=== PATIENT | female | born 1985 | race Caucasian/White ===

== ENCOUNTER 2016-06-13 17:58 | Emergency (ER) | payer OTHER ==
[~2016-06-13] VITALS: Ht 157.5 cm; Wt 84.5 kg
[~2016-06-13 17:58] MED LIST: FLUC150T17 PO; [UNRECOGNIZED DRUG - CODE] VAG
[2016-06-13 18:00] VITALS: Ht 157.5 cm; Wt 84.5 kg
--- NOTE | 2016-06-13 19:31 | ERD ---
ER Documentation Chief Complaint Date/Time DATE: 06/13/16 TIME: 19:31 Chief Complaint VAG BLEED X 8 DAYS, 6 WEEKS HPI 31-year-old female who is A0 comes in with vaginal bleeding over the past 3 weeks. Patient states that she was told that she was after going to the clinic with routine blood work and urine tests. Patient states that her last menstrual period was on April 04, 2016, and May 17 she experienced heavy vaginal bleeding and since then she has had light spotting. She has had pelvic cramping as well. She denies fevers, chills or dizziness. ROS All systems reviewed and are negative except as per history of present illness. Medications Home Meds Active Scripts Miconazole Nitrate* (Miconazole-7*) 100 Mg/Supp.vag Supp.vag, 100 MG VAG HS, #7 SUPP.VAG Prov:DILLON BUCKLEY PA-C 08/29/15 Fluconazole* (Diflucan*) 150 Mg Tablet, 150 MG PO ONCE, #1 TAB Prov:DILLON BUCKLEY PA-C 08/29/15 Allergies Allergies: Coded Allergies: No Known Allergy (Unverified , 06/13/16) PMhx/Soc Medical and Surgical Hx: pt denies Medical Hx History of Surgery: Yes ( x 1) Anesthesia Reaction: No Hx Neurological Disorder: No Hx Respiratory Disorders: No Hx Cardiac Disorders: No Hx Psychiatric Problems: No Hx Miscellaneous Medical Probl: No Hx Alcohol Use: No Hx Substance Use: No Hx Tobacco Use: No Smoking Status: Never smoker Physical Exam Vitals Vital Signs Date Time Temp Pulse Resp B/P Pulse Ox O2 Delivery O2 Flow Rate FiO2 06/13/16 21:52 98.4 79 18 118/73 100 Room Air 06/13/16 18:00 97.9 98 18 125/79 99 Physical Exam General: Well-developed, well-nourished. The patient appears in no acute distress. HEENT: Head is normocephalic, atraumatic. No scleral icterus. Neck: Supple. Nontender. Lungs: Clear to auscultation. Normal air movement. Heart: Regular rate and rhythm. S1 and S2 are normal. No murmurs, gallops, or rubs. Abdomen: Soft, nontender, nondistended. Bowel sounds are normoactive. : ALT is closed, no CMT tenderness, mild vaginal bleeding. Extremities: No clubbing or cyanosis. Normal pulses. Moving extremities x 4. No weakness. Neurologic: Alert and oriented 3. No focal deficits. Skin: Normal turgor. No rash or lesions. Result Diagram: 06/13/161935 Results 24 hrs Laboratory Tests Test 06/13/16 19:36 Basophils # 0.110^3/ul Basophils % 0.7% Beta HCG, Quantitative 96055.0mIU/ml Eosinophils # 0.110^3/ul Eosinophils % 1.0% Hematocrit 37.4% Hemoglobin 13.0g/dl Lymphocytes # 2.010^3/ul Lymphocytes % 25.9% Mean Corpuscular Hemoglobin 31.9pg Mean Corpuscular Hemoglobin Concent 34.6g/dl Mean Corpuscular Volume 92.2fl Mean Platelet Volume 8.3fl Monocytes # 0.310^3/ul Monocytes % 4.1% Neutrophils # 5.410^3/ul Neutrophils % 68.3% Nucleated Red Blood Cells # 0.010^3/ul Nucleated Red Blood Cells % 0.0/100WBC Platelet Count 55609^3/UL Red Blood Count 4.0610^6/ul Red Cell Distribution Width 13.1% Urine Bacteria MODERATE Urine Bilirubin NEGATIVE Urine Clarity SLIGHTLY CLOUDY Urine Color LT. YELLOW Urine Glucose NEGATIVE% Urine Hemoglobin 3+ Urine Ketones NEGATIVE Urine Leukocyte Esterase NEGATIVE Urine Microscopic RBC 5-10/HPF Urine Microscopic WBC NONE SEEN/HPF Urine Nitrite NEGATIVE Urine Specific [place] <=1.005 Urine Squamous Epithelial Cells MANY Urine Total Protein NEGATIVE Urine Urobilinogen 0.2 E.U./dL Urine pH 6.5 White Blood Count 7.910^3/ul PROCEDURE: Ultrasound . CLINICAL INDICATION: with vaginal hemorrhage. TECHNIQUE: Transabdominal ultrasound. COMPARISON: None FINDINGS: Gestational sac is identified with estimated gestational age of 7 weeks and 6 days. Estimated date of delivery is 01/24/2017. Otherwise there is no identified pole or yolk sac. Large subchorionic hemorrhage measures 37 x 18 x 11 mm. Right ovary measures 29 x 21 x 21 mm. Left ovary measures 32 x 23 x 19 mm. IMPRESSION: 1. Gestational sac without identified pole or yolk sac. 2. Estimated gestational age is 7 weeks and 6 days. 3. Large subchorionic hemorrhage. 4. Recommend follow-up serial quantitative beta HCG and ultrasound examinations. RPTAT: UU. Lindsay Husain Physician Date Time Electronically viewed and signed by Lindsay Husain Physician on 06/13/2016 20:25 RS/ Procedures/MDM MDM: 31-year-old female comes in with likely a missed . Patient shows a gestational sac on ultrasound that measures to be 7 weeks and 6 days, no evidence of yolk sac or pole, no heart tones. HCG was at 49,000, I spoke with the OB ed educational aide Dr. Reynolds who agrees that this patient does not have any surgical process or high suspicion for ectopic . Patient was advised to follow-up outpatient for a D&C. Departure Diagnosis: Primary Impression: Threatened Condition: YASMIN Altman PA-C Jun 13, 2016 19:31
[2016-06-13 19:56] LABS: ADD UMIC YES; URINE BILIRUBIN (Dip) NEGATIVE (NEGATIVE); URINE BLOOD (Dip) 3+ (NEGATIVE); URINE COLOR LT. YELLOW (YELLOW); URINE GLUCOSE (Dip) NEGATIVE (NEGATIVE); URINE KETONES (Dip) NEGATIVE (NEGATIVE); URINE LEUKOCYTE ESTERASE (Dip) NEGATIVE (NEGATIVE); URINE NITRITE (Dip) NEGATIVE (NEGATIVE); URINE TOTAL PROTEIN (Dip) NEGATIVE (NEGATIVE); URINE UROBILINOGEN (Dip) 0.2 E.U./dL (0.1-1.0)
[2016-06-13 19:59] LABS: BASOPHIL # 0.1 10^3/ul (0.0-0.1); BASOPHILS % 0.7 % (0.0-2.0); EOSINOPHILS # 0.1 10^3/ul (0.0-0.5); HEMATOCRIT 37.4 % (37.0-47.0); LYMPHOCYTES % 25.9 % (15.0-51.0); MEAN CORPUSCULAR HEMOGLOBIN 31.9 pg (29.0-33.0); MEAN CORPUSCULAR HGB CONC 34.6 g/dl (32.0-37.0); MEAN CORPUSCULAR VOLUME 92.2 fl (82.0-101.0); MEAN PLATELET VOLUME 8.3 fl (7.4-10.4); MONOCYTE # 0.3 10^3/ul (0.3-0.9); MONOCYTES % 4.1 % (0.0-11.0); NEUTROPHIL # 5.4 10^3/ul (1.6-7.5); NEUTROPHILS % 68.3 % (39.0-77.0); PLATELET COUNT 234 10^3/UL (140-440); RED BLOOD COUNT 4.06 10^6/ul (4.20-5.40); RED CELL DISTRIBUTION WIDTH 13.1 % (11.5-14.5); UNCORRECTED WBC 7.9 10^3/ul (4.8-10.8); WHITE BLOOD COUNT 7.9 10^3/ul (4.8-10.8)
[2016-06-13 20:03] LABS: CONDITION 1
[2016-06-13 20:12] LABS: SQUAMOUS EPITHELIAL CELL,UR MANY
[2016-06-13 20:13] LABS: BACTERIA,URINE MODERATE
--- NOTE | 2016-06-13 20:25 | RADRPT ---
PROCEDURE: Ultrasound . CLINICAL INDICATION: with vaginal hemorrhage. TECHNIQUE: Transabdominal ultrasound. COMPARISON: None FINDINGS: Gestational sac is identified with estimated gestational age of 7 weeks and 6 days. Estimated date of delivery is 01/24/2017. Otherwise there is no identified pole or yolk sac. Large subchorio juan manuel hemorrhage measures 37 x 18 x 11 mm. Right ovary measures 29 x 21 x 21 mm. Left ovary measures 32 x 23 x 19 mm. IMPRESSION: 1. Gestational sac without identified pole or yolk sac. 2. Estimated gestational age is 7 weeks and 6 days. 3. Large subchorionic hemorrhage. 4. Recommend follow-up serial quantitative beta HCG and ultrasound examinations. RPTAT: UU. Physician Zhane Date Time Electronically viewed and signed by Physician Zhane on 06/13/2016 20:25 RS/
[2016-06-13 21:52] VITALS: BP 118/73; PULSE 79; RESP 18; TEMP 98.4
== END 2016-06-13 21:53 | disposition home or self-care (01) ==
LOC: FTE 17:58
DX: O20.9 Hemorrhage in early pregnancy, unspecified (principal); R10.2 Pelvic and perineal pain; Z3A.01 Less than 8 weeks gestation of pregnancy
CPT/HCPCS: 36415; 76801; 76817; 81001; 81003; 84702; 85025; 86900; 86901

== ENCOUNTER 2018-06-07 07:15 | Inpatient (IN) | payer OTHER ==
[~2018-06-07] VITALS: Ht 154.9 cm; Wt 101.8 kg
[~2018-06-07 07:15] MED LIST changes: +FLUC150T PO; -FLUC150T17 PO
[2018-06-07 08:00] VITALS: Ht 154.9 cm; Wt 101.8 kg
[2018-06-07] MEDS ORDERED: OXYTOCIN 30 UNITS/LR 500 ML IV SCH ×2 (08:00→12:46)
[2018-06-07] MEDS ORDERED: METHYLERGONOVINE 0.2 MG INJ IM PRN ×2 (08:00→13:00)
[2018-06-07] MEDS ORDERED: CEFAZOLIN 2 GM/50 ML (PMX) 50 ML IVPB SCH (08:00)
[2018-06-07] MEDS ORDERED: MISOPROSTOL 200 MCG TAB PR PRN ×2 (08:00→13:00)
[2018-06-07] MEDS ORDERED: CARBOPROST 250 MCG INJ IM PRN ×2 (08:00→13:00)
[2018-06-07] MEDS ORDERED: OXYTOCIN 30 UNITS/LR 500 ML IV PRN ×2 (08:00→13:00)
[2018-06-07] MEDS: LACTATED RINGER'S 1,000 ML IV SCH (09:22)
--- NOTE | 2018-06-07 09:36 | PREAC ---
Date/Time of Note Date/Time of Note DATE: 06/07/18 TIME: 09:35 Anesthesia Eval and Record Evaluation Time Pre-Procedure Interview DATE: 06/07/18 TIME: 09:35 Age 33 Sex female NPO: 8 hrs Preoperative diagnosis repeat c section Planned procedure c section Past Medical History Past Medical History: Includes GI: Morbid obesity : : (3), Gestational age: (39) Surgery & Anesthesia Issues No known issue Meds Anticoagulation: No Beta Vianca within 24 hr: No Reason Beta Vianca not given: Pt. not on B-Vianca Active Scripts Miconazole Nitrate* (Miconazole-7*) 100 Mg/Supp.vag Supp.vag, 100 MG VAG HS, #7 SUPP.VAG Prov:DILLON BUCKLEY PA-C 08/29/15 Fluconazole* (Diflucan*) 150 Mg Tablet, 150 MG PO ONCE, #1 TAB Prov:DILLON BUCKLEY PA-C 08/29/15 Current Medications Lactated Ringer's 1,000 ml @ 125 mls/hr Q8H IV Last administered on 06/07/18at 09:22; Admin Dose 125 MLS/HR; Start 06/07/18 at 07:59 Cefazolin Sodium/ Dextrose 50 ml @ 100 mls/hr ONCE IVPB ; Start 06/07/18 at 08:00 Oxytocin/Lactated Ringer's 500 ml @ 125 mls/hr POST IV ; Start 06/07/18 at 08:00 Oxytocin/Lactated Ringer's 500 ml @ 0 mls/hr ONCE PRN IV VAGINAL BLEEDING; Start 06/07/18 at 08:00 Methylergonovine Maleate (Methergine) 0.2 mg ONCE PRN IM VAGINAL BLEEDING; Start 06/07/18 at 08:00 Carboprost Tromethamine (Hemabate) 250 mcg ONCE PRN IM VAGINAL BLEEDING; Start 06/07/18 at 08:00 Misoprostol (Cytotec) 1,000 mcg ONCE PRN MN VAGINAL BLEEDING; Start 06/07/18 at 08:00 Meds reviewed: Yes Allergies Coded Allergies: No Known Allergy (Unverified , 06/13/16) Allergies Reviewed: Yes Labs/Studies Labs Reviewed: Reviewed by anesthesiologist Result Diagram: 06/07/18 0810 Laboratory Tests 06/07/18 08:10 Blood Bank Test 06/07/18 08:10 Blood Type O POSITIVE Rh Immune Globulin Candidate NO test: Positive Studies: ECG (n/a), CXR (n/a) Pre-procedure Exam Airway: Adequate mouth opening Mallampati: Mallampati I Teeth: Normal Lung: Normal Heart: Normal ASA Physical Status ASA physical status: 3 Emergency: None Planned Anesthetic Neuraxial: Spinal Planned Pain Management Sub-arachniod narcotics Pre-operative Attestations Prior to commencing anesthesia and surgery, the patient was re-evaluated, there was verification of: *The patient's identity *The results of appropriate recent lab work and preoperative vital signs *The above evaluation not changing prior to induction *Anesthetic plan, risk benefits, alternative and complications discussed with patient/family; questions answered; patient/family understands, accepts and wishes to proceed. LIS DIAZ MD Jun 07, 2018 09:36
[2018-06-07] MEDS ORDERED: CITRIC ACID/NA CITRATE 30 ML CUP ONE (09:37)
[2018-06-07] MEDS ORDERED: CITRIC ACID/NA CITRATE 30 ML CUP PO ONE (10:00)
[2018-06-07] MEDS ORDERED: ONDANSETRON 4 MG INJ ONE (11:32)
[2018-06-07] MEDS ORDERED: morphine SULFATE/PF (10 MG/10 ML) INJ ONE (11:32)
[2018-06-07] MEDS ORDERED: PHENYLephrine (100 MCG/ML) 5ML SYG ONE (11:42)
[2018-06-07] MEDS ORDERED: METOCLOPRAMIDE 10 MG INJ ONE (11:43)
[2018-06-07] MEDS ORDERED: KETOROLAC 30 MG INJ ONE (11:43)
[2018-06-07] MEDS ORDERED: EPHEDrine 25 MG/5 ML SYG ONE (12:10)
[2018-06-07] MEDS ORDERED: OXYTOCIN 30 UNITS/LR 500 ML IV ONE (12:11)
--- NOTE | 2018-06-07 12:44 | OPPN ---
Date/Time of Note Date/Time of Note DATE: 06/07/18 TIME: 12:43 Operative Report Planned Procedure Procedure date Jun 07, 2018 Procedure(s) REEPAT CSECTION Performed by see signature line Can Tester: LILA QUIROZ MD 2nd Can Tester none Anesthesiologist: LIS DIAZ MD Pre-procedure diagnosis 39WEEK 1/7 IUP WITH PREVIOUS CSECTION [id number] Anesthesia Type: Srvke0t spinal Post-Procedure Post-procedure diagnosis 39WEEK 7 IUP WITH PREVIOUS CSECTION Findings Live Baby BOY , Apgars 8 and 9, weight 7LBS 1OZ Estimated Blood Loss: 500 - 600 mls Specimen(s) PLACENTA Grafts/Implant(s) none Complication(s) none SHIRLEY STEINBERG MD Jun 07, 2018 12:44
[2018-06-07] MEDS ORDERED: LACTATED RINGER'S 1,000 ML IV SCH (12:46)
--- NOTE | 2018-06-07 12:58 | PREOPHP ---
DATE OF ADMISSION: 06/07/2018 HISTORY OF PRESENT ILLNESS: This is a 33-year-old lady, 3, para 1 with 1 spontaneous abortio n, EDC 06/14/2017 at 39 weeks , admitted to labor and delivery area for repeat . Sh shelly had a mild irregular contractions. She had care in my [place] office and the car e was uneventful. She had 1 previous . She is for repeat . The procedures were explained to the pat ient and she understood everything totally. The risks, benefits, and alternatives were discussed wit h her as well. PAST PERSONAL HISTORY: No history of TB, asthma. ALLERGIES: NO ALLERGIES. SOCIAL HISTORY: Patient does not smoke. She does not drink. MEDICATIONS: She does not take any drugs except her iron and vitamins. GYNECOLOGICAL HISTORY: She had menarche at the age of 13, every 28 days interval, 3 to 4 days durati on, and moderate in amount. FAMILY HISTORY: Mother has hypertension. Sister has heart disease. OBSTETRICAL HISTORY: She is 4, para 1, first delivery was by in 2009. She had a s pontaneous 2017 at 6 weeks. REVIEW OF SYSTEMS: CARDIOVASCULAR: No chest pains. RESPIRATORY: No cough. GASTROINTESTINAL: No diarrhea, no vomiting. GENITOURINARY: No dysuria. PHYSICAL EXAMINATION: Reveals a conscious, coherent lady and in no acute distress. She is 3. REVIEW OF SYSTEMS: CARDIOVASCULAR: No chest pain. RESPIRATORY: No cough. GASTROINTESTINAL: No diarrhea, no vomiting. GENITOURINARY: No dysuria. PHYSICAL EXAMINATION: GENERAL: Reveals a conscious, coherent lady and in no acute distress. VITAL SIGNS: Her blood pressure 120/80, pulse rate 80 per minute, respirations 16 per minute. BREASTS, HEART AND LUNGS: Within normal limits. ABDOMEN: Soft. No organomegaly. Fundic height 38 cm. heart tones 140 per minute. PELVIC: On admission revealed the cervix to be closed, station floating in cephalic presentation wit h the bag of water intact. EXTREMITIES: No pedal edema. ADMITTING DIAGNOSIS: A 39 weeks' intrauterine with previous x1. Patient discharged to go for repeat . The procedures were explained to her and she understo od everything totally. The risks, benefits, and alternatives were discussed with her as well. Dictated By: SHIRLEY PLASCENCIA/MANDIE Conf#: [id number] DID#: [id number]
[2018-06-07] MEDS ORDERED: METHYLERGONOVINE 0.2 MG TAB PO PRN (13:00)
--- NOTE | 2018-06-07 13:23 | PAC ---
Date/Time of Note Date/Time of Note DATE: 06/07/18 TIME: 13:22 Post-Anesthesia Notes Post-Anesthesia Note Last documented vital signs BP 116/64 Sat 98%, RR 18, Tem 98, HR 97 Activity: WNL Respiratory function: WNL Cardiovascular function: WNL Mental status: Baseline Pain reasonably controlled: Yes Hydration appropriate: Yes Nausea/Vomiting absent: No LIS DIAZ MD Jun 07, 2018 13:23
[2018-06-07] MEDS ORDERED: DIPHENHYDRAMINE 50 MG INJ IV PRN ×2 (13:30)
[2018-06-07] MEDS ORDERED: ONDANSETRON 4 MG INJ IV PRN ×2 (13:30)
[2018-06-07] MEDS ORDERED: morphine (1 MG/ML) 10ML SYRINGE IV PRN ×3 (13:30)
[2018-06-07] MEDS ORDERED: NALOXONE (0.4 MG/ML) INJ IV PRN (13:30)
[2018-06-07] MEDS ORDERED: KETOROLAC 30 MG INJ IV PRN (13:30)
[2018-06-07] MEDS ORDERED: morphine 4 MG/ML VIAL IV PRN ×3 (13:30)
[2018-06-07 15:00] VITALS: BP 112/71; PULSE 75; RESP 18
--- NOTE | 2018-06-07 17:00 | NUR ---
Patient teachings and immunization information given to patient via intelligence agent [id number]. Patient verbalized understanding.
[2018-06-07] MEDS: LANOLIN HPA 1 PKT TOP PRN (17:01)
[2018-06-07 20:00] VITALS: BP 101/70; PULSE 96; RESP 18
[2018-06-07] MEDS: SENNA/DOCUSATE NA (8.6MG/50MG) TAB PO SCH (21:00)
[2018-06-08] VITALS: BP 109/55; PULSE 89; RESP 19
[2018-06-08] MEDS: KETOROLAC 30 MG INJ IV PRN ×2 (02:36→10:30)
[2018-06-08] MEDS: LACTATED RINGER'S 1,000 ML IV SCH ×2 (02:37→07:44)
[2018-06-08 04:00] VITALS: BP 95/61; PULSE 95; RESP 20
--- NOTE | 2018-06-08 06:27 | NUR ---
EOSS: PATIENT IN STABLE CONDITION., V/S WNL, GOOD URINE OUT PUT, BLEEDING IS MINIMUM, BONDS WELL WITH BABY.
--- NOTE | 2018-06-08 07:41 | OPPN ---
Date/Time of Note Date/Time of Note DATE: 06/08/18 TIME: 07:40 Anesthesia Follow up Anesthesia Follow up Last documented vital signs Vital Signs Date Temp Pulse Resp B/P (MAP) Pulse Ox O2 O2 Flow FiO2 Time Delivery Rate 06/08/18 98.9 95 20 95/61 (72) 96 04:00 06/07/18 Room Air 15:00 Respiratory function: WNL Cardiovascular function: WNL Comments A 33 year f spinal s/pduramorph for post op pain POD#1 is doing fine. No headache, N/V, itching, neural deficit, pain. LIS DIAZ MD Jun 08, 2018 07:41
[2018-06-08 08:00] VITALS: BP 108/64; PULSE 98; RESP 18
[2018-06-08] MEDS: SENNA/DOCUSATE NA (8.6MG/50MG) TAB PO SCH ×2 (09:31→22:08)
[2018-06-08 11:52] VITALS: PULSE 79; RESP 20
[2018-06-08 16:11] VITALS: BP 115/66; PULSE 79; RESP 18
[2018-06-08] MEDS: IBUPROFEN 800 MG TAB PO PRN (16:42)
--- NOTE | 2018-06-08 17:08 | NUR ---
EOSS; Vital signs stable, denies any pain or discomfort at this time. Bonding well with .
[2018-06-08 20:00] VITALS: BP 121/65; PULSE 75; RESP 20
[2018-06-08] MEDS: HYDROCODONE/APAP (5/325) TAB PO PRN (22:09)
[2018-06-09] MEDS: IBUPROFEN 800 MG TAB PO PRN ×3 (02:41→21:50)
[2018-06-09 04:04] VITALS: BP 121/62; PULSE 72; RESP 20
--- NOTE | 2018-06-09 04:05 | NUR ---
EOSS NO DISTRESS PAIN WELL CONTROLLED WITH PO MEDS
[2018-06-09 08:00] VITALS: BP 113/71; PULSE 86; RESP 20
[2018-06-09] MEDS: SENNA/DOCUSATE NA (8.6MG/50MG) TAB PO SCH ×2 (08:41→21:49)
[2018-06-09] MEDS: HYDROCODONE/APAP (5/325) TAB PO PRN ×2 (10:00→17:31)
[2018-06-09 15:47] VITALS: BP 105/69; PULSE 84; RESP 18
--- NOTE | 2018-06-09 17:43 | NUR ---
EOSS; Vital signs stable denies any pain or discomfort at this time. Bonding well with infant.
--- NOTE | 2018-06-09 18:11 | OPR ---
DATE OF OPERATION: 06/07/2018 PREOPERATIVE DIAGNOSIS: 39 weeks' intrauterine , with 1 previous and the patient desires section. POSTOPERATIVE DIAGNOSIS: 39 weeks' intrauterine , with 1 previous and the patient desires section. SURGEON: Shirley Noland MD WOOL HAT FLANGER: Dr. Jefferson. ANESTHESIA: Spinal. ANESTHESIOLOGIST: Dr. Vaughn. ANESTHESIA: Spinal. OPERATION PERFORMED: Repeat low transverse section. OPERATIVE TECHNIQUE: Under spinal anesthesia, the patient was prepped and draped in the usual fashio n for abdominal surgery. After checking for the effect of the anesthesia, a Pfannenstiel incision, t he previous scar was excised. A 12 cm skin incision was performed. The incision was carried from th e skin up to the fascia. Upon opening the skin up to the fascia, small blood vessels were noted to b e oozing and these were all cauterized. Fascia was opened transversely followed by splitting the mus cles vertically and the peritoneum vertically. Upon opening the abdominal cavity, the bladder blade was put in place. A small otf was performed from the serosa up to the endometrium, and the otf was carried sidewise with the aid of my 2 fingers. My left hand was inserted in the lower segment of th e uterus and the bag of water was ruptured. Clear fluid when was noted. Baby's head was delivered. Baby's airways were quickly suctioned with amniotic fluid. Then, the anterior shoulder, posterior s houlder, and rest of the body of the baby was delivered. Baby's cord was clamped after 30 seconds an d then, the baby was handed to the NICU team. The placenta was delivered manually and complete. The uterus was exteriorized. The uterus was cleansed with wet lap sponge to make sure that no mem branes were left behind. After correct sponge count, the uterus was closed in the usual fashion usin g #1 chromic for the first layer, continuous locking suture was used followed by #1 chromic. For the second layer, imbricating sutures were used. Bleeders were checked, and there was no bleeding noted . After checking for the bleeders, in which there were none, both tubes and ovaries were inspected a nd were healthy looking. The back of the uterus was checked for any hematoma and there was none note d. Then, the uterus was put back into the pelvic cavity. Once again, uterine incision was checked f or any bleeders and there was no bleeding noted. After correct sponge count, needle count and instru ment count as confirmed by the health physics technician and counter weigher, the abdomen was closed in the usual fashion using 0 Vicryl for the peritoneum, 0 Vicryl for the fascia, for the muscle, 2-0 Vicryl was used for continuous suture was used. For the fascia, 0 Vicryl continuous suture was used followed by few figu re-of-eight sutures. For the subcutaneous tissue, it was closed with 3-0 Vicryl and the skin was mike sed with 3-0 Vicryl, subcuticular suture was used. The patient tolerated the procedure well. Estima damion blood loss about 600 mL. Vital signs were stable during and after the delivery. The placenta wa s delivered spontaneously and complete. She delivered a healthy baby boy on 06/07/2018 at 11:51 a.m. 8 and 9, 3195 grams, 7 pounds 1 ounce, 20.5 inches long. Dictated By: SHIRLEY PLASCENCIA/MANDIE Conf#: [id number] DID#: [id number]
[2018-06-09 20:00] VITALS: BP 120/64; PULSE 70; RESP 20
[2018-06-10] MEDS: HYDROCODONE/APAP (5/325) TAB PO PRN (00:19)
[2018-06-10 04:12] VITALS: BP 99/61; PULSE 70; RESP 20
--- NOTE | 2018-06-10 04:16 | NUR ---
EOSS NO DISTRESS, LOOKING FORWARD TO GOING HOME TODAY
[2018-06-10 07:46] VITALS: BP 113/77; PULSE 84; RESP 18
[2018-06-10] MEDS: IBUPROFEN 800 MG TAB PO PRN (07:46)
[2018-06-10] MEDS: LANOLIN HPA 1 PKT TOP PRN (08:43)
[2018-06-10] MEDS: SENNA/DOCUSATE NA (8.6MG/50MG) TAB PO SCH (08:43)
[2018-06-10] MEDS ORDERED: DIPHTH/TET/ACEL PERTUSS (ADULT) 0.5 ML VIAL IM* ONE (09:00)
[2018-06-10] MEDS ORDERED: MEASLES,MUMPS,RUBELLA VACCINE INJ SC* ONE (09:00)
--- NOTE | 2018-06-10 14:40 | NUR ---
DISCHARGED HOME IN STABLE CONDITION VIA WHEELCHAIR.
--- NOTE | 2018-06-10 17:03 | PN ---
Date/Time of Note Date/Time of Note DATE: 06/08/18 TIME: 3:00PM Assessment/Plan VTE Prophylaxis Risk score (from Nsg)>0 risk: 3 SCD applied (from Nsg): No SCD contraindicated: low risk/ambulating Pharmacological prophylaxis: NA/contraindicated Pharm contraindication: low risk/ambulating Lines/Catheters IV Catheter Type (from Nrsg): Peripheral IV Assessment/Plan Assessment/Plan POSTCSECTION DAY 1 CHRONIC IRON DEFICIENCY ANEMIA ORDERED ADVANCE DIET TOLERATED CBC ON 3RD POSTOP DAY Result Diagram: 06/08/18 0640 06/08/18 0640 Subjective 24 Hr Interval Summary Free Text/Dictation POST CSECTION DAY 1 COMPLAIN OF INCISIONAL PAINS GOOD URINE OUTPUT PASSING GAS PER RECTUM NO BOWEL MOVEMENT YET Exam/Review of Systems Vital Signs Vitals Vital Signs Date Temp Pulse Resp B/P (MAP) Pulse Ox O2 O2 Flow FiO2 Time Delivery Rate 06/10/18 98.1 84 18 113/77 Room Air 07:46 (89) 06/08/18 99 11:52 Exam VITAL SIGNS STABLE: YES AFEBRILE: YES BREAST NOT ENGORGED, NON-TENDER, NO APPRECIABLE MASS: YES LUNGS CLEAR, NO RALES, WHEEZES, RHONCHI: YES SINUS RHYTHM WITHOUT MURMUR: YES ABDOMEN: NON-TENDER FUNDUS: BELOW UMBILICUS BOWEL SOUNDS: PRESENT UTERUS: FIRM INCISION (CLEAN, DRY, AND INTACT): YES LOCHIA: LIGHT DEEP TENDON REFLEXES: 0 EXTREMITIES: NO CALF TENDERNESS EDEMA SCALE: NONE SHIRLEY STEINBERG MD Jun 10, 2018 17:03
--- NOTE | 2018-06-10 17:06 | PN ---
Date/Time of Note Date/Time of Note DATE: 06/10/18 TIME: 1:30PM Assessment/Plan VTE Prophylaxis Risk score (from Nsg)>0 risk: 3 SCD applied (from Nsg): No SCD contraindicated: low risk/ambulating Pharmacological prophylaxis: NA/contraindicated Pharm contraindication: low risk/ambulating Lines/Catheters IV Catheter Type (from Nrsg): Peripheral IV Assessment/Plan Assessment/Plan POSTCSECTION HOME TODAY COUNSELED INSTRUCTED PRESCRIPTION GIVEN FOR PAIN RETURN TO CLINIC IN 2 WEEKS CALL OFFICE IF THERE IS ANY PROBLEM OR CONCERN CONTINUE WITH VITAMINS OD AND FERROUS SULFATE 325MG PO TID DIET ADVISED Result Diagram: 06/08/18 0640 06/08/18 0640 Subjective 24 Hr Interval Summary Free Text/Dictation POST CSECTION DAY 2 LITTLE BOWEL MOVEMENT GOOD URINE OUTPUT FEELS LESS INCISIONAL PAINS Exam/Review of Systems Vital Signs Vitals Vital Signs Date Temp Pulse Resp B/P (MAP) Pulse Ox O2 O2 Flow FiO2 Time Delivery Rate 06/10/18 98.1 84 18 113/77 Room Air 07:46 (89) 06/08/18 99 11:52 Exam VITAL SIGNS STABLE: YES AFEBRILE: YES BREAST NOT ENGORGED, NON-TENDER, NO APPRECIABLE MASS: YES LUNGS CLEAR, NO RALES, WHEEZES, RHONCHI: YES SINUS RHYTHM WITHOUT MURMUR: YES ABDOMEN: NON-TENDER FUNDUS: BELOW UMBILICUS BOWEL SOUNDS: PRESENT UTERUS: FIRM INCISION (CLEAN, DRY, AND INTACT): YES LOCHIA: LIGHT DEEP TENDON REFLEXES: 0 EXTREMITIES: NO CALF TENDERNESS EDEMA SCALE: NONE SHIRLEY STEINBERG MD Jun 10, 2018 17:06
== END 2018-06-10 14:40 | disposition home or self-care (01) | DRG 788 ==
LOC: L-D 07:15 → PP1 14:37
PROVIDERS: ADMIT Obstetrics & Gynecology; ATTEND Obstetrics & Gynecology
PROC: 10D00Z1 Extraction of Products of Conception, Low, Open Approach (ICD-10-PCS; principal; 2018-06-07 10:30)
DX: O34.211 Maternal care for low transverse scar from previous cesarean delivery (principal); Z3A.39 39 weeks gestation of pregnancy; Z37.0 Single live birth
CPT/HCPCS: 80048; 85025; 85610; 85730; 86592; 86850; 86900; 86901; 99464; J0690; J1200; J1885; J2274; J2370; J2405; J2590; J2765; J7120